=== PATIENT | female | born 1990 | race Caucasian/White ===

== ENCOUNTER 2020-12-14 18:44 | Emergency (ER) | payer OTHER, SELFPAY ==
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
[2020-12-14 20:02] VITALS: BP 182/118; PULSE 93; RESP 18; TEMP 36.9; O2SAT 99; BMI 25.6
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
[2020-12-14 21:56] VITALS: PULSE 100; RESP 20; O2SAT 99
[2020-12-14 21:59] VITALS: BP 159/114; BP 173/114
--- NOTE | 2020-12-14 22:02 | PC.NURSE ---
This RN at bedside for discharge. MD notified of elevated BP with diastolic readings 112/114. Pt remains asymptomatic, reports increased stress at home. States she drinks 1 Redbull/daily. Plan to treat pain management, reassess BP in 30 minutes.
[2020-12-14] MEDS: traMADoL HCL 50 MG TABLET PO (22:08)
[2020-12-14] MEDS: LORazepam 1 MG TABLET PO (22:08)
--- NOTE | 2020-12-14 22:09 | PC.NURSE ---
Medicated per MAR for pain/anxiety.
[2020-12-14 22:49] VITALS: BP 159/97
[2020-12-14] MEDS: hydrOXYzine HCL 50 MG TABLET PO (22:59)
== END 2020-12-14 23:02 | disposition home or self-care (01) ==
PROVIDERS: Emergency Provider Internal Medicine
DX: S09.90XA Unspecified injury of head, initial encounter (principal); R03.0 Elevated blood-pressure reading, without diagnosis of hypertension; X58.XXXA Exposure to other specified factors, initial encounter; Y93.9 Activity, unspecified; Y92.9 Unspecified place or not applicable; Y99.9 Unspecified external cause status
CPT/HCPCS: 70450; 99284